=== PATIENT | male | born 1990 | race Caucasian/White ===

== ENCOUNTER 2022-12-11 00:15 | Emergency (ER) | payer OTHER ==
[2022-12-11] MEDS ORDERED: NORCO 5/325 MG PO ONE (00:33)
[2022-12-11] MEDS ORDERED: Augmentin 875-125 Tablet PO ONE (00:33)
[2022-12-11] MEDS ORDERED: TORAdol 30 mg Injection IM ONE (00:33)
[2022-12-11 00:35] VITALS: BP 147/98
[2022-12-11] MEDS ORDERED: TORAdol 30 mg Injection ONE (00:36)
[2022-12-11] MEDS ORDERED: NORCO 5/325 MG ONE (00:37)
[2022-12-11] MEDS ORDERED: Augmentin 875-125 Tablet ONE (00:37)
--- NOTE | 2022-12-11 00:39 | ERPHSYRPT ---
- History of Present Illness Time Seen by Provider: 12/11/22 00:30 Source: patient Exam Limitations: no limitations Physician History: 32 years old male with history of dental caries with periodontal disease, multiple broken teeth presented in the ER with chief complaint of right upper and area gingival swelling and pain with progressive worsening for the last couple of days. Patient has been taking [id number] pain medication with no significant relief. No fever or chills reported. Does have appointment with dentist in 10 days. Timing/Duration: gradual onset, this evening, days (2) Severity: moderate ENT Location: dental Prearrival Treatment: over the counter meds Associated Symptoms: tooth pain, No fever Allergies/Adverse Reactions: No Known Drug Allergies Allergy (Verified 12/11/22 00:25) - Review of Systems Constitutional: No Symptoms Eyes: No Symptoms Ears, Nose, & Throat: Mouth Pain, Mouth Swelling, Loose Teeth Respiratory: No Symptoms Cardiac: No Symptoms Genitourinary Symptoms: No Symptoms Skin: No Symptoms Neurological: No Symptoms Endocrine: No Symptoms Hematologic/Lymphatic: No Symptoms - Physical Exam General Appearance: no apparent distress, alert Eye Exam: bilateral eye: normal inspection, PERRL, EOMI Ear Exam: bilateral ear: auricle normal Nasal Exam: normal inspection Throat Exam: normal, pharynx normal, dental tenderness (Multiple broken teeth upper jaw and some on the lower jaw with periodontal disease. Gingival swelling right upper anterior with tenderness, no fluctuation.) Neck Exam: normal inspection, non-tender, supple, full range of motion Cardiovascular/Respiratory Exam: normal breath sounds, regular rate/rhythm Neurologic Exam: alert, oriented x 3, cooperative, game preserve manager II-XII nml as tested Skin Exam: normal color SpO2 Interpretation: normal SpO2: 96 O2 Delivery: Room Air - Progress Progress: pain not gone completely Progress Note: 12/11/22 00:36 32 years old with periodontal disease, dental caries and multiple broken teeth is evaluated for right upper jaw pain and swelling for the last couple of days w ith progressive worsening without fever or chills. On exam has positive tenderness in the gingiva but no fluctuation. No definitive abscess in my opinion at present but patient can develop. Given Toradol for symptomatic relief and placed on Augmentin and NSAIDs to go home. Discussed signs symptoms of worsening needing return to ER which he seems understanding. Encouraged to keep appointment with dentist. Counseled pt/family regarding: diagnosis, need for follow-up - Departure Departure Disposition: Home Clinical Impression: Dental infection Condition: Stable Critical Care Time: No Referrals: ISIS IBRAHIM NP [Primary Care Provider] - Follow Up with PCP/3 days Instructions: Tooth Abscess (DC) Additional Instructions: Take Tylenol/diclofenac as needed for pain. Continue with antibiotics. Follow- up with your dentist for reevaluation. Return to ER for any worsening. Prescriptions: Amox Tr/Potass Clav. 875 mg [Augmentin 875-125 Tablet] 875 mg PO BID #14 tablet Diclofenac Sodium 50 mg PO TID PRN 7 Days #20 tab PRN Reason: Pain
[2022-12-11 00:51] VITALS: PULSE 70; O2SAT 97
== END 2022-12-11 00:51 | disposition home or self-care (01) ==
LOC: ED 00:15
DX: K04.7 Periapical abscess without sinus (principal); K08.89 Other specified disorders of teeth and supporting structures
CPT/HCPCS: 96372; 99283; J1885; A9270-GY